=== PATIENT | male | born 1945 | race African-American/Black ===

== ENCOUNTER 2018-09-16 08:54 | Inpatient (IN) | payer BC ==
[~2018-09-16] VITALS: Ht 180.3 cm; Wt 112.0 kg
[2018-09-16] MEDS ORDERED: ASPIRIN 81MG TABLET PO ONE (09:45)
[2018-09-16] MEDS ORDERED: NITROGLYCERIN OINT 1GM/INCH UDPKT TD ONE (09:45)
[2018-09-16 11:14] LABS: BASOPHILS % 0.1 % (0.0-2.0); EOSINOPHILS % 2.9 % (0.0-5.0); HEMATOCRIT. 43.7 % (42.0-52.0); HEMOGLOBIN. 14.2 g/dL (14.0-18.0); LYMPHOCYTES % 27.6 % (20.0-50.0); MEAN CORPUSCULAR HEMOGLOBIN 25.1 pg (28.0-32.0); MEAN CORPUSCULAR VOLUME 77.4 fL (80.0-94.0); MEAN PLATELET VOLUME 8.6 fl (7.4-10.4); MONOCYTES % 12.9 % (2.0-8.0); NEUTROPHILS % 56.5 % (40.0-76.0); PLATELET 236 x1000/uL (130-400); RED BLOOD CELL COUNT 5.64 mill/uL (4.7-6.1); RED CELL DISTRIBUTION WIDTH 16.2 % (11.6-14.6)
[2018-09-16 11:20] LABS: CHLORIDE 109 mEq/L (98-107)
[2018-09-16 11:25] LABS: D-DIMER 0.8 mg/L FEU (<0.50); PARTIAL THROMBOPLASTIN TIME 30.4 sec (23.4-31.0); PROTHROMBIN TIME 10.6 sec (9.6-11.0)
[2018-09-16] MEDS ORDERED: ONDANSETRON HCL 4MG/2ML INJ IV STA (12:48)
[2018-09-16] MEDS ORDERED: MORPHINE SULFATE 4 MG/ML CPJ (NOT FOR IM USE) IV STA (12:48)
[2018-09-16] MEDS: AMLODIPINE 5MG TABLET PO SCH ×2 (13:46→23:09)
[2018-09-16] MEDS ORDERED: CLONIDINE 0.1MG TABLET PO PRN (16:00)
[2018-09-16] MEDS ORDERED: IPRATROPIUM/ALBUTEROL 0.5-3(2.5)MG/3ML NEB INH PRN (16:00)
[2018-09-16] MEDS ORDERED: NA PHOS,M-B/NA PHOS,DI-BA ENEMA 118ML PR PRN (16:00)
[2018-09-16] MEDS ORDERED: DIPHENHYDRAMINE 50MG/ML VIAL IV PRN (16:00)
[2018-09-16] MEDS ORDERED: MAGNESIUM/ALUMINUM HYDROXIDE/SIMETHICONE 30ML UDC PO PRN (16:00)
[2018-09-16 17:04] VITALS: BP 152/81
[2018-09-16 17:08] VITALS: BP 152/81
[2018-09-16] MEDS: ENOXAPARIN 30MG/0.3ML SYR SUBCUT SCH (17:55)
[2018-09-16] MEDS: ACETAMINOPHEN 325MG TABLET PO PRN (17:55)
[2018-09-16 20:00] VITALS: BP 128/88
[2018-09-16 21:08] LABS: CHLORIDE 108 mEq/L (98-107)
[2018-09-16 22:13] LABS: *AMPHETAMINES SCREEN URINE NEGATIVE (NEGATIVE); *BARBITURATES SCREEN URINE NEGATIVE (NEGATIVE); *BENZODIAZEPINES SCREEN URINE NEGATIVE (NEGATIVE); *COCAINE SCREEN URINE NEGATIVE (NEGATIVE); METHADONE URINE SCREEN NEGATIVE (NEGATIVE)
[2018-09-16 22:14] LABS: CANNABINOID URINE SCREEN NEGATIVE (NEGATIVE); OPIATES URINE SCREEN PRESUMTIVE POSITIVE (NEGATIVE); PHENCYCLIDINE URINE SCREEN NEGATIVE (NEGATIVE)
[2018-09-16] MEDS ORDERED: IOHEXOL-350 100 ML BOTTLE ONE (22:54)
[2018-09-17] VITALS: BP 131/78
[2018-09-17] MEDS: ACETAMINOPHEN 325MG TABLET PO PRN ×2 (03:56→15:15)
[2018-09-17 04:00] VITALS: BP 152/59
[2018-09-17 06:38] LABS: BASOPHILS % 1.1 % (0.0-2.0); HEMATOCRIT. 41.8 % (42.0-52.0); HEMOGLOBIN. 13.7 g/dL (14.0-18.0); LYMPHOCYTES % 26.8 % (20.0-50.0); MEAN CORPUSCULAR HEMOGLOBIN 25.2 pg (28.0-32.0); MEAN CORPUSCULAR VOLUME 76.7 fL (80.0-94.0); MEAN PLATELET VOLUME 8.5 fl (7.4-10.4); MONOCYTES % 14.9 % (2.0-8.0); NEUTROPHILS % 53.2 % (40.0-76.0); PLATELET 238 x1000/uL (130-400); RED BLOOD CELL COUNT 5.44 mill/uL (4.7-6.1); RED CELL DISTRIBUTION WIDTH 16.3 % (11.6-14.6)
[2018-09-17 06:53] LABS: CHLORIDE 106 mEq/L (98-107)
[2018-09-17 07:04] LABS: LDL CHOLESTEROL 111 mg/dL (5-100)
[2018-09-17 07:05] LABS: HDL CHOLESTEROL 33 mg/dL (40-59)
[2018-09-17] MEDS: ENOXAPARIN 30MG/0.3ML SYR SUBCUT SCH ×2 (07:08→17:50)
[2018-09-17 08:00] VITALS: BP 132/73
[2018-09-17] MEDS: AMLODIPINE 5MG TABLET PO SCH ×2 (08:30→22:25)
[2018-09-17 12:00] VITALS: BP 104/68
[2018-09-17] MEDS ORDERED: LOSARTAN POTASSIUM 25 MG TABLET PO SCH (13:00)
[2018-09-17] MEDS: DOCUSATE SODIUM 100MG CAPSULE PO PRN (15:12)
[2018-09-17] MEDS: METOPROLOL TARTRATE 25MG TABLET PO SCH (15:12)
[2018-09-17 16:00] VITALS: BP_SYST 132; BP_SYST 135; BP_SYST 141; BP_DIAS 70; BP_DIAS 77; BP_DIAS 79
[2018-09-17] MEDS: PREDNISONE 20MG TABLET PO SCH (17:49)
[2018-09-17] MEDS: MONTELUKAST SODIUM 10MG TABLET PO SCH (17:49)
[2018-09-17 20:00] VITALS: BP_SYST 128; BP_SYST 130; BP_SYST 145; BP_DIAS 82; BP_DIAS 87; BP_DIAS 89
[2018-09-17] MEDS: FLUTICASONE PROPIONATE 50MCG/SPRAY BOTTLE BOTHNSTRLS SCH (22:24)
[2018-09-17] MEDS: FAMOTIDINE 20MG TABLET PO SCH (22:25)
[2018-09-17] MEDS: LORATADINE 10MG TABLET PO SCH (22:25)
[2018-09-17] MEDS: LOSARTAN POTASSIUM 25 MG TABLET PO SCH (22:25)
[2018-09-18] VITALS: BP 130/88
[2018-09-18 04:00] VITALS: BP 103/60
[2018-09-18] MEDS: ENOXAPARIN 30MG/0.3ML SYR SUBCUT SCH ×2 (05:50→17:07)
[2018-09-18 08:00] VITALS: BP 126/68
[2018-09-18] MEDS: IPRATROPIUM/ALBUTEROL 0.5-3(2.5)MG/3ML NEB HHN SCH ×4 (08:26→19:59)
[2018-09-18 08:34] LABS: BASOPHILS % 0.2 % (0.0-2.0); HEMATOCRIT. 45.9 % (42.0-52.0); LYMPHOCYTES % 11.5 % (20.0-50.0); MEAN CORPUSCULAR HEMOGLOBIN 25.3 pg (28.0-32.0); MEAN CORPUSCULAR VOLUME 77.3 fL (80.0-94.0); MEAN PLATELET VOLUME 8.7 fl (7.4-10.4); MONOCYTES % 3.2 % (2.0-8.0); NEUTROPHILS % 85.1 % (40.0-76.0); PLATELET 268 x1000/uL (130-400); RED BLOOD CELL COUNT 5.94 mill/uL (4.7-6.1)
[2018-09-18] MEDS: FLUTICASONE PROPIONATE 50MCG/SPRAY BOTTLE BOTHNSTRLS SCH ×2 (08:34→21:32)
[2018-09-18] MEDS: FAMOTIDINE 20MG TABLET PO SCH ×2 (08:35→21:27)
[2018-09-18] MEDS: METOPROLOL TARTRATE 25MG TABLET PO SCH ×3 (08:35→21:58)
[2018-09-18] MEDS: DOCUSATE SODIUM 100MG CAPSULE PO PRN (08:35)
[2018-09-18] MEDS: LOSARTAN POTASSIUM 25 MG TABLET PO SCH ×2 (08:35→21:26)
[2018-09-18] MEDS: AMLODIPINE 5MG TABLET PO SCH ×2 (08:35→21:26)
[2018-09-18] MEDS: PREDNISONE 20MG TABLET PO SCH (08:36)
[2018-09-18 09:07] LABS: CHLORIDE 105 mEq/L (98-107)
[2018-09-18] MEDS ORDERED: REGADENOSON 0.4 MG/5 ML IV NR (09:30)
[2018-09-18] MEDS ORDERED: REGADENOSON 0.4 MG/5 ML IV ONE (10:56)
[2018-09-18 16:00] VITALS: BP 113/68
[2018-09-18] MEDS: MONTELUKAST SODIUM 10MG TABLET PO SCH (17:07)
[2018-09-18] MEDS: GUAIFENESIN 600MG ER TABLET PO SCH ×2 (17:07→21:26)
[2018-09-18 20:00] VITALS: BP 118/73
[2018-09-18] MEDS: LORATADINE 10MG TABLET PO SCH (21:25)
[2018-09-19] VITALS: BP 100/48
[2018-09-19] MEDS: IPRATROPIUM/ALBUTEROL 0.5-3(2.5)MG/3ML NEB HHN SCH ×4 (00:22→13:25)
[2018-09-19 04:00] VITALS: BP 99/50
[2018-09-19] MEDS: ENOXAPARIN 30MG/0.3ML SYR SUBCUT SCH (05:46)
[2018-09-19 06:56] LABS: BASOPHILS % 0.7 % (0.0-2.0); EOSINOPHILS % 0.1 % (0.0-5.0); HEMATOCRIT. 44.6 % (42.0-52.0); HEMOGLOBIN. 14.4 g/dL (14.0-18.0); LYMPHOCYTES % 13.4 % (20.0-50.0); MEAN CORPUSCULAR VOLUME 77.4 fL (80.0-94.0); MEAN PLATELET VOLUME 9.1 fl (7.4-10.4); MONOCYTES % 7.4 % (2.0-8.0); NEUTROPHILS % 78.4 % (40.0-76.0); PLATELET 267 x1000/uL (130-400); RED BLOOD CELL COUNT 5.77 mill/uL (4.7-6.1); RED CELL DISTRIBUTION WIDTH 16.2 % (11.6-14.6)
[2018-09-19 08:00] VITALS: BP 131/87
[2018-09-19] MEDS: ACETAMINOPHEN 325MG TABLET PO PRN (08:30)
[2018-09-19] MEDS: AMLODIPINE 5MG TABLET PO SCH (08:30)
[2018-09-19] MEDS: LOSARTAN POTASSIUM 25 MG TABLET PO SCH (08:31)
[2018-09-19] MEDS: GUAIFENESIN 600MG ER TABLET PO SCH (08:36)
[2018-09-19] MEDS: FLUTICASONE PROPIONATE 50MCG/SPRAY BOTTLE BOTHNSTRLS SCH (08:36)
[2018-09-19] MEDS: METOPROLOL TARTRATE 25MG TABLET PO SCH (08:36)
[2018-09-19] MEDS ORDERED: PREDNISONE 20MG TABLET PO SCH (09:00)
[2018-09-19 11:56] VITALS: BP_SYST 105; BP_SYST 115; BP_SYST 118; BP_DIAS 54; BP_DIAS 58; BP_DIAS 62
[2018-09-19] MEDS: FAMOTIDINE 20MG TABLET PO SCH (12:19)
[2018-09-19 12:40] VITALS: BP 105/58
== END 2018-09-19 14:27 | disposition home or self-care (01) | DRG 189 ==
LOC: ER 08:54 → EDBEDREQTM 11:53 → 5WST 12:32 → EDBEDREQTM 12:38 → EDBEDREQ 12:38 → ENRESERV 15:18
PROVIDERS: ADMIT Family Medicine Adult Medicine; ATTEND Family Medicine Adult Medicine
DX: J96.00 Acute respiratory failure, unspecified whether with hypoxia or hypercapnia (principal); I10 Essential (primary) hypertension; I25.10 Atherosclerotic heart disease of native coronary artery without angina pectoris; I48.0 Paroxysmal atrial fibrillation; Z95.0 Presence of cardiac pacemaker; J00 Acute nasopharyngitis [common cold]; J43.9 Emphysema, unspecified; R07.89 Other chest pain; J40 Bronchitis, not specified as acute or chronic; I49.5 Sick sinus syndrome; R79.89 Other specified abnormal findings of blood chemistry; Z82.49 Family history of ischemic heart disease and other diseases of the circulatory system
CPT/HCPCS: 36415; 71045; 71275; 78452; 80048; 80061; 80305; 82962; 83036; 83735; 83880; 84443; 84484; 85379; 87070; 93005; 93017; 93306; 93970; 94640; 96374; 97165; 99285; A9500; J1650; J2270; J2405; J2785; J7512; J7620; Q9967

== ENCOUNTER 2020-11-17 00:18 | Inpatient (IN) | payer BC ==
[~2020-11-17] VITALS: Ht 180.3 cm; Wt 111.4 kg
[2020-11-17] VITALS (8 sets, daily range): BP systolic 112–169; BP diastolic 64–87
[2020-11-17] MEDS ORDERED: ACETAMINOPHEN 325MG TABLET PO ONE (01:00)
[2020-11-17] MEDS ORDERED: MORPHINE SULFATE 4 MG/ML CPJ (NOT FOR IM USE) IV ONE (01:00)
[2020-11-17 01:23] LABS: BASOPHILS % 1.2 % (0.0-2.0); EOSINOPHILS % 4.1 % (0.0-5.0); HEMATOCRIT. 41.4 % (42.0-52.0); HEMOGLOBIN. 13.5 g/dL (14.0-18.0); LYMPHOCYTES % 24.6 % (20.0-50.0); MEAN CORPUSCULAR HEMOGLOBIN 24.5 pg (28.0-32.0); MEAN CORPUSCULAR VOLUME 75.4 fL (80.0-94.0); MEAN PLATELET VOLUME 8.5 fl (7.4-10.4); MONOCYTES % 13.7 % (2.0-8.0); NEUTROPHILS % 56.4 % (40.0-76.0); PLATELET 222 x1000/uL (130-400); RED CELL DISTRIBUTION WIDTH 16.1 % (11.6-14.6)
[2020-11-17 01:32] LABS: CHLORIDE 112 mEq/L (98-107)
[2020-11-17 01:36] LABS: ETHANOL BLOOD < 10 mg/dL
[2020-11-17 02:03] LABS: INR 1.1; PROTHROMBIN TIME 11.9 sec (9.6-11.0)
[2020-11-17 05:45] LABS: *AMPHETAMINES SCREEN URINE NEGATIVE (NEGATIVE); *BARBITURATES SCREEN URINE NEGATIVE (NEGATIVE); *BENZODIAZEPINES SCREEN URINE NEGATIVE (NEGATIVE); *COCAINE SCREEN URINE NEGATIVE (NEGATIVE); METHADONE URINE SCREEN NEGATIVE (NEGATIVE); OPIATES URINE SCREEN PRESUMTIVE POSITIVE (NEGATIVE)
[2020-11-17 05:46] LABS: CANNABINOID URINE SCREEN NEGATIVE (NEGATIVE); PHENCYCLIDINE URINE SCREEN NEGATIVE (NEGATIVE)
[2020-11-17] MEDS ORDERED: IPRATROPIUM/ALBUTEROL 0.5-3(2.5)MG/3ML NEB HHN PRN (09:30)
[2020-11-17] MEDS ORDERED: ONDANSETRON HCL 4MG/2ML INJ IV PRN (09:30)
[2020-11-17] MEDS ORDERED: LISI-186 PO (11:38)
[2020-11-17] MEDS ORDERED: METO25TA6 PO (11:38)
[2020-11-17] MEDS ORDERED: HYDRALAZINE 20MG/ML VIAL IV PRN (12:15)
[2020-11-17] MEDS: METOPROLOL TARTRATE 50MG TABLET PO SCH ×2 (12:48→21:35)
[2020-11-17] MEDS: ISOSORBIDE DINITRATE 10MG TABLET PO SCH ×2 (14:34→18:22)
[2020-11-17] MEDS ORDERED: LISI10TA26 PO (15:38)
[2020-11-17] MEDS ORDERED: BENA10TA74 PO (15:38)
[2020-11-17] MEDS ORDERED: NITR0.4T49 SL (15:38)
[2020-11-17] MEDS ORDERED: IPRA4AER INH (15:38)
[2020-11-17] MEDS ORDERED: PRIM50TA31 PO (15:38)
[2020-11-17] MEDS ORDERED: METOPROLOL SUCCINATE 50MG ER TABLET PO SCH (17:00)
[2020-11-18] VITALS (20 sets, daily range): BP systolic 104–161; BP diastolic 54–93
[2020-11-18] MEDS ORDERED: HEPARIN SODIUM 1,000 UNIT/1ML VIAL IV ONE (08:42)
[2020-11-18] MEDS ORDERED: NITROGLYCERIN 50MCG/ML 10ML VIAL (CATH LAB) IV ONE (08:42)
[2020-11-18] MEDS: METOPROLOL TARTRATE 50MG TABLET PO SCH ×2 (08:47→21:18)
[2020-11-18] MEDS: ISOSORBIDE DINITRATE 10MG TABLET PO SCH ×3 (08:47→17:22)
[2020-11-18] MEDS: ASPIRIN 81MG TABLET PO SCH (08:57)
[2020-11-18] MEDS: ACETAMINOPHEN 325MG TABLET PO PRN ×2 (08:57→17:22)
[2020-11-18] MEDS ORDERED: PANTOPRAZOLE SODIUM 40 MG/VIAL IV SCH (09:00)
[2020-11-18] MEDS ORDERED: MIDAZOLAM HCL 2 MG/2 ML VIAL ONE ×2 (09:59→11:33)
[2020-11-18] MEDS ORDERED: FENTANYL CITRATE/PF 50MCG/ML 2ML VIAL ONE (09:59)
[2020-11-18] MEDS ORDERED: VERAPAMIL HCL 2.5 MG/1 ML 2ML VIAL IV ONE (09:59)
[2020-11-18] MEDS ORDERED: LIDOCAINE HCL 1% 20ML VIAL (Pyxis) INJ ONE (10:00)
[2020-11-18] MEDS ORDERED: IODIXANOL 320MG/ML 100 ML BOTTLE IV ONE (10:00)
[2020-11-18] MEDS ORDERED: HEPARIN 1000 UNITS/ML 10ML ONE (10:02)
[2020-11-18] MEDS ORDERED: IOHEXOL-300 100 ML BOTTLE ONE (11:40)
[2020-11-18] MEDS ORDERED: CLOPIDOGREL 75MG TABLET ONE (11:51)
[2020-11-18] MEDS ORDERED: SODIUM CHLORIDE 0.45% 1,000 ML IV SCH (12:30)
[2020-11-18] MEDS ORDERED: ATROPINE SULFATE 1MG/10ML SYR IV PRN (12:30)
[2020-11-19] VITALS (8 sets, daily range): BP systolic 102–147; BP diastolic 55–76
[2020-11-19 06:46] LABS: EOSINOPHILS % 5.5 % (0.0-5.0); HEMATOCRIT. 39.4 % (42.0-52.0); HEMOGLOBIN. 12.9 g/dL (14.0-18.0); LYMPHOCYTES % 25.2 % (20.0-50.0); MEAN CORPUSCULAR HEMOGLOBIN 24.6 pg (28.0-32.0); MEAN CORPUSCULAR VOLUME 74.9 fL (80.0-94.0); MEAN PLATELET VOLUME 8.6 fl (7.4-10.4); MONOCYTES % 12.8 % (2.0-8.0); NEUTROPHILS % 55.5 % (40.0-76.0); PLATELET 224 x1000/uL (130-400); RED BLOOD CELL COUNT 5.26 mill/uL (4.7-6.1); RED CELL DISTRIBUTION WIDTH 15.6 % (11.6-14.6)
[2020-11-19 07:03] LABS: CHLORIDE 109 mEq/L (98-107)
[2020-11-19] MEDS: ISOSORBIDE DINITRATE 10MG TABLET PO SCH (08:44)
[2020-11-19] MEDS: METOPROLOL TARTRATE 50MG TABLET PO SCH (08:45)
[2020-11-19] MEDS: ASPIRIN 81MG TABLET PO SCH (08:46)
[2020-11-19] MEDS ORDERED: CLOPIDOGREL 75MG TABLET PO SCH (09:00)
[2020-11-19] MEDS ORDERED: CLOP75TA15 PO (10:28)
[2020-11-19] MEDS ORDERED: ASPI-1160 PO (10:28)
== END 2020-11-19 13:03 | disposition home or self-care (01) | DRG 246 ==
LOC: ER 00:18 → MICUSO 03:06 → 5EST 07:42 → 3WST 11-18 12:03
PROVIDERS: ADMIT Internal Medicine; ATTEND Internal Medicine
PROC: 027034Z Dilation of Coronary Artery, One Artery with Drug-eluting Intraluminal Device, Percutaneous Approach (ICD-10-PCS; principal; 2020-11-18)
PROC: 4A023N7 Measurement of Cardiac Sampling and Pressure, Left Heart, Percutaneous Approach (ICD-10-PCS; 2020-11-18)
PROC: B211YZZ Fluoroscopy of Multiple Coronary Arteries using Other Contrast (ICD-10-PCS; 2020-11-18)
PROC: 4A033BC Measurement of Arterial Pressure, Coronary, Percutaneous Approach (ICD-10-PCS; 2020-11-18)
DX: I25.110 Atherosclerotic heart disease of native coronary artery with unstable angina pectoris (principal); N17.0 Acute kidney failure with tubular necrosis; Z20.822 Contact with and (suspected) exposure to COVID-19; I10 Essential (primary) hypertension; J44.9 Chronic obstructive pulmonary disease, unspecified; G89.29 Other chronic pain; E78.5 Hyperlipidemia, unspecified; I16.0 Hypertensive urgency; E87.8 Other disorders of electrolyte and fluid balance, not elsewhere classified; E66.9 Obesity, unspecified; Z95.0 Presence of cardiac pacemaker; Z87.891 Personal history of nicotine dependence; Z71.3 Dietary counseling and surveillance; Z68.34 Body mass index [BMI] 34.0-34.9, adult
CPT/HCPCS: 36415; 71045; 80048; 80053; 80305; 80320; 83880; 84443; 84484; 85025; 85347; 85379; 87426; 92928; 93005; 93306; 93458; 93571; 99285; C1769; C1874; C1887; C1893; C9113; J1644; J2250; J2270; J3010; J3490; Q9967; G0480

== ENCOUNTER 2022-02-20 12:06 | Inpatient (IN) | payer BC, MEDICARE ==
[~2022-02-20] VITALS: Ht 181.6 cm; Wt 110.2 kg
[~2022-02-20 12:06] MED LIST: ASPI-1160 PO; BENA10TA74 PO; CLOP75TA15 PO; IPRA4AER INH; ISOS30TA91 MT; LISI-186 PO; LISI10TA26 PO; METO25TA6 PO; NITR0.4T49 SL; PRIM50TA5 PO; nifedipine
[2022-02-20] MEDS ORDERED: NITROGLYCERIN 0.4MG TABLET SL SL ONE (12:30)
[2022-02-20 14:27] LABS: HEMATOCRIT. 34.5 % (42.0-52.0); HEMOGLOBIN. 11.2 g/dL (14.0-18.0); LYMPHOCYTES % 15.4 % (20.0-50.0); MEAN CORPUSCULAR HEMOGLOBIN 23.2 pg (28.0-32.0); MEAN CORPUSCULAR VOLUME 71.9 fL (80.0-94.0); MEAN PLATELET VOLUME 8.7 fl (7.4-10.4); MONOCYTES % 12.4 % (2.0-8.0); NEUTROPHILS % 70.2 % (40.0-76.0); PLATELET 258 x1000/uL (130-400); RED BLOOD CELL COUNT 4.81 mill/uL (4.7-6.1); RED CELL DISTRIBUTION WIDTH 16.8 % (11.6-14.6)
[2022-02-20 14:28] LABS: CHLORIDE 108 mEq/L (98-107)
[2022-02-20 14:33] LABS: INR 1.1; PARTIAL THROMBOPLASTIN TIME 29.3 sec (23.4-31.0)
[2022-02-20] MEDS ORDERED: MORPHINE SULFATE 4 MG/ML CPJ (NOT FOR IM USE) IV ONE (16:30)
[2022-02-20] MEDS ORDERED: CLONIDINE 0.1MG TABLET PO PRN (20:45)
[2022-02-20] MEDS ORDERED: ONDANSETRON HCL 4MG/2ML INJ IV PRN (20:45)
[2022-02-20] MEDS ORDERED: MORPHINE SULFATE 2 MG/ML CPJ (NOT FOR IM USE) IV PRN (20:45)
[2022-02-20] MEDS ORDERED: IPRATROPIUM/ALBUTEROL 0.5-3(2.5)MG/3ML NEB HHN PRN (20:45)
[2022-02-20] MEDS ORDERED: DIPHENHYDRAMINE 50MG/ML VIAL IV PRN (20:45)
[2022-02-20] MEDS ORDERED: NALOXONE HCL 0.4MG/ML VIAL IV PRN (21:00)
[2022-02-21 02:38] VITALS: BP 106/73
[2022-02-21 04:00] VITALS: BP 97/63
[2022-02-21 08:00] VITALS: BP 139/81
[2022-02-21 08:57] LABS: BASOPHILS % 1.2 % (0.0-2.0); EOSINOPHILS % 2.8 % (0.0-5.0); HEMATOCRIT. 33.4 % (42.0-52.0); HEMOGLOBIN. 10.8 g/dL (14.0-18.0); LYMPHOCYTES % 33.7 % (20.0-50.0); MEAN CORPUSCULAR HEMOGLOBIN 23.2 pg (28.0-32.0); MEAN CORPUSCULAR VOLUME 71.8 fL (80.0-94.0); MEAN PLATELET VOLUME 8.7 fl (7.4-10.4); MONOCYTES % 13.3 % (2.0-8.0); PLATELET 235 x1000/uL (130-400); RED BLOOD CELL COUNT 4.66 mill/uL (4.7-6.1); RED CELL DISTRIBUTION WIDTH 16.7 % (11.6-14.6)
[2022-02-21 09:00] LABS: CHLORIDE 109 mEq/L (98-107)
[2022-02-21 12:00] VITALS: BP 148/68
[2022-02-21 16:00] VITALS: BP 131/61
[2022-02-21] MEDS: FUROSEMIDE 40MG/4ML VIAL IVP SCH (17:00)
[2022-02-21] MEDS: ACETAMINOPHEN 325MG TABLET PO PRN (17:00)
[2022-02-21 20:00] VITALS: BP 112/79
[2022-02-22] VITALS: BP 122/80
[2022-02-22 04:00] VITALS: BP 126/66
[2022-02-22 08:00] VITALS: BP 137/71
[2022-02-22] MEDS: ACETAMINOPHEN 325MG TABLET PO PRN ×2 (08:25→20:04)
[2022-02-22] MEDS: SPIRONOLACTONE 25MG TABLET PO SCH (08:25)
[2022-02-22] MEDS: NITROGLYCERIN 0.4MG TABLET SL SL PRN ×2 (09:11→09:25)
[2022-02-22] MEDS ORDERED: LIDOCAINE HCL 1% 10 MG/ML 10ML VIAL ONE (09:32)
[2022-02-22] MEDS: FUROSEMIDE 40MG/4ML VIAL IVP SCH ×2 (10:38→18:13)
[2022-02-22 12:00] VITALS: BP 130/71
[2022-02-22] MEDS ORDERED: REGADENOSON 0.4 MG/5 ML IV NR (13:30)
[2022-02-22 16:00] VITALS: BP 111/67
[2022-02-22 20:00] VITALS: BP 99/60
[2022-02-23] VITALS: BP 98/52
[2022-02-23 04:00] VITALS: BP 105/59
[2022-02-23 06:39] LABS: CHLORIDE 105 mEq/L (98-107)
[2022-02-23 08:00] VITALS: BP 100/60
[2022-02-23] MEDS ORDERED: REGADENOSON 0.4 MG/5 ML IV ONE (10:59)
[2022-02-23 13:00] VITALS: BP 110/70
[2022-02-23] MEDS ORDERED: SPIR25TA PO (13:42)
[2022-02-23] MEDS: SPIRONOLACTONE 25MG TABLET PO SCH (13:56)
== END 2022-02-23 16:25 | disposition home or self-care (01) | DRG 391 ==
LOC: ER 12:06 → MICUSO 20:13 → EDBEDREQ 20:26 → 8WST 02-21 02:14
PROVIDERS: ADMIT Family Medicine Adult Medicine; ATTEND Family Medicine Adult Medicine
PROC: 02HV33Z Insertion of Infusion Device into Superior Vena Cava, Percutaneous Approach (ICD-10-PCS; principal; 2022-02-20)
PROC: B548ZZA Ultrasonography of Superior Vena Cava, Guidance (ICD-10-PCS; 2022-02-20)
DX: K29.70 Gastritis, unspecified, without bleeding (principal); I50.33 Acute on chronic diastolic (congestive) heart failure; I25.110 Atherosclerotic heart disease of native coronary artery with unstable angina pectoris; I11.0 Hypertensive heart disease with heart failure; I07.1 Rheumatic tricuspid insufficiency; J44.9 Chronic obstructive pulmonary disease, unspecified; F17.200 Nicotine dependence, unspecified, uncomplicated; Z79.899 Other long term (current) drug therapy; Z95.0 Presence of cardiac pacemaker; Z95.5 Presence of coronary angioplasty implant and graft
CPT/HCPCS: 36415; 36573; 71045; 78452; 80053; 83880; 84484; 85025; 87426; 93005; 93306; 93970; 99285; A9500; C1725; C1893; J1940; J2270; J2785; J3490; A4315

== ENCOUNTER 2023-01-27 10:20 | Emergency (ER) | payer BC, MEDICARE ==
[~2023-01-27] VITALS: Ht 182.9 cm; Wt 111.0 kg
[~2023-01-27 10:20] MED LIST changes: -BENA10TA74 PO; -LISI-186 PO; -LISI10TA26 PO; -METO25TA6 PO; -PRIM50TA5 PO; +SPIR25TA PO; -nifedipine
[2023-01-27 10:25] VITALS: O2SAT 98
[2023-01-27 14:35] LABS: BASOPHILS % 1.5 % (0.0-2.0); EOSINOPHILS % 1.4 % (0.0-5.0); HEMATOCRIT. 27.3 % (42.0-52.0); HEMOGLOBIN. 8.2 g/dL (14.0-18.0); LYMPHOCYTES % 16.1 % (20.0-50.0); MEAN CORPUSCULAR HEMOGLOBIN 17.9 pg (28.0-32.0); MEAN CORPUSCULAR HGB CONC 29.9 g/dL (31.0-37.0); MEAN CORPUSCULAR VOLUME 59.8 fL (80.0-94.0); MEAN PLATELET VOLUME 8.6 fl (7.4-10.4); PLATELET 299 x1000/uL (130-400); RED BLOOD CELL COUNT 4.56 mill/uL (4.7-6.1); RED CELL DISTRIBUTION WIDTH 20.8 % (11.6-14.6); WHITE BLOOD COUNT 6.5 x1000/uL (4.5-11.0)
[2023-01-27 14:45] LABS: ADD RBC MORPHOLOGY YES; DIFFERENTIAL COMMENT 1
[2023-01-27 14:57] LABS: ALANINE AMINOTRANSFERASE 13 IU/L (10-49); ALBUMIN 3.9 g/dL (3.2-4.8); ASPARTATE AMINOTRANSFERASE 19 IU/L (<34); BILIRUBIN TOTAL 0.3 mg/dL (0.1-1.0); CALCIUM 8.6 mg/dL (8.7-10.4); CARBON DIOXIDE 23 mEq/L (21-32); CHLORIDE 109 mEq/L (98-107); CREATININE 1.4 mg/dL (0.6-1.3); GLUCOSE 97 mg/dL (70-105); POTASSIUM 4.1 mEq/L (3.5-5.1); PROTEIN TOTAL 6.6 g/dL (6.0-8.3); SODIUM 141 mEq/L (136-145); UREA NITROGEN BLOOD 16 mg/dL (9-23)
[2023-01-27] MEDS ORDERED: TRAMADOL 50MG TABLET PO ONE (15:15)
[2023-01-27] MEDS ORDERED: CLONIDINE 0.2MG TABLET PO ONE (15:15)
[2023-01-27] MEDS ORDERED: CLONIDINE 0.1MG TABLET PO NR (15:45)
[2023-01-27 16:36] VITALS: BP 142/84; PULSE 78; RESP 20; TEMP 98.3
[2023-01-27 17:39] LABS: PLATELET ESTIMATE NORMAL
[2023-01-27 17:40] LABS: ANISOCYTOSIS 2+; HYPOCHROMASIA 2+; MICROCYTOSIS 3+; OVALOCYTES 1+; TARGET CELLS 1+
== END 2023-01-27 16:38 | disposition home or self-care (01) ==
LOC: ER 10:37
DX: R07.89 Other chest pain (principal); R51.9 Headache, unspecified; J44.9 Chronic obstructive pulmonary disease, unspecified; I10 Essential (primary) hypertension; I25.2 Old myocardial infarction; Z95.0 Presence of cardiac pacemaker
CPT/HCPCS: 36415; 71045; 80053; 83880; 85025; 93005; 99285